=== PATIENT | male | born 1995 | race Caucasian/White ===

== ENCOUNTER 2018-09-01 22:09 | Emergency (ER) | payer MEDICAID ==
[2018-09-01 23:39] VITALS: BP 133/78
[2018-09-01] MEDS ORDERED: solu-MEDROL 125 MG IM ONE (23:46)
[2018-09-01] MEDS ORDERED: Rocephin 1000 MG INJ IM ONE (23:46)
--- NOTE | 2018-09-01 23:46 | ERPHSYRPT ---
- History of Present Illness Time Seen by Provider: 09/01/18 23:35 Source: patient Exam Limitations: no limitations Patient Subjective Stated Complaint: pt states over past 3 days has recieved bites on legs and scrotum. pt states he has been outside [employer]. pt states he did sit on the grass, but he had on bluejeans. Triage Nursing Assessment: bites noted on all extremeties, but concentrated on legs and perineal area. Physician History: 22 y/o white male presents with several insect bites generalized but most concentrated on pt scrotal, perineal and bilat lower ext. pt was out fishing for 3 days. pt is very itchy. never had this before. pt has been using topical hydrocortisone and topical benadryl. not improving. Timing/Duration: day(s) (3) Quality: itchy Severity: moderate Location: extremities (bilat lower ext), genitalia Possible Causes: insect bite Modifying Factors: Improves With: scratching Associated Symptoms: change in skin texture, rash Hx Tetanus, Diphtheria Vaccination/Date Given: No Hx Influenza Vaccination/Date Given: No Hx Pneumococcal Vaccination/Date Given: No Immunizations Up to Date: Yes - Review of Systems Constitutional: No Symptoms Eyes: No Symptoms Ears, Nose, & Throat: No Symptoms Respiratory: No Symptoms Cardiac: No Symptoms Abdominal/Gastrointestinal: No Symptoms Genitourinary Symptoms: No Symptoms Musculoskeletal: No Symptoms Skin: Other (several punctate insect bite sites with rash and mild localized infection around a few of these) Neurological: No Symptoms Psychological: No Symptoms Endocrine: No Symptoms Hematologic/Lymphatic: No Symptoms Immunological/Allergic: No Symptoms All Other Systems: Reviewed and Negative - Past Medical History Pertinent Past Medical History: No Neurological History: No Pertinent History ENT History: No Pertinent History Cardiac History: No Pertinent History Respiratory History: No Pertinent History Endocrine Medical History: No Pertinent History Musculoskeletal History: No Pertinent History GI Medical History: No Pertinent History History: No Pertinent History Psycho-Social History: No Pertinent History, Depression Male Reproductive Disorders: No Pertinent History - Past Surgical History Past Surgical History: No Neuro Surgical History: No Pertinent History Cardiac: No Pertinent History Respiratory: No Pertinent History Gastrointestinal: No Pertinent History Genitourinary: No Pertinent History Musculoskeletal: No Pertinent History Male Surgical History: No Pertinent History - Social History Smoking Status: Current every day smoker How long have you smoked: 1 yr Exposure to second hand smoke: No Drug Use: none Patient Lives Alone: No - Nursing Vital Signs Nursing Vital Signs: Initial Vital Signs Temperature 98.1 F 09/01/18 23:24 Pulse Rate 72 09/01/18 23:24 Respiratory Rate 18 09/01/18 23:24 Blood Pressure 133/78 09/01/18 23:24 O2 Sat by Pulse Oximetry 99 09/01/18 23:24 Pain Scale Pain Intensity 6 - Physical Exam General Appearance: no apparent distress, alert, anxiety Eye Exam: PERRL/EOMI, eyes nml inspection Ears, Nose, Throat Exam: normal ENT inspection, moist mucous membranes Neck Exam: normal inspection, non-tender, supple, full range of motion Respiratory Exam: normal breath sounds, lungs clear, airway intact, No chest tenderness, No respiratory distress Cardiovascular Exam: regular rate/rhythm, normal heart sounds, normal peripheral pulses Gastrointestinal/Abdomen Exam: soft, normal bowel sounds, No tenderness, No guarding Male Genitalia Exam: other (scrotal and perineal insect bite sites) Rectal Exam: not done Back Exam: normal inspection, normal range of motion, CVA tenderness Extremity Exam: normal range of motion, pelvis stable, other (multiple itchy, insect bite sites with peribite site redness and mild localized infection) Neurologic Exam: alert, oriented x 3, cooperative, 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, normal mood/affect, nml cerebellar function, nml station & gait Skin Exam: rash, other (insect bite sites as above) Lymphatic Exam: No adenopathy SpO2 Interpretation: normal SpO2: 99 O2 Delivery: Room Air - Course Nursing assessment & vital signs reviewed: Yes Ordered Tests: Medication Summary Discontinued Medications Generic Name Dose Route Start Last Admin Trade Name Yeyo PRN Reason Stop Dose Admin Ceftriaxone Sodium 1,000 mg 09/01/18 23:46 09/02/18 00:03 Rocephin 1000 Mg Inj IM 09/01/18 23:47 1,000 mg STAT ONE Administration Ceftriaxone Sodium Confirm 09/01/18 23:54 Rocephin 1000 Mg Inj Administered 09/01/18 23:55 Dose 1,000 mg .ROUTE .STK-MED ONE Diphenhydramine HCl 50 mg 09/01/18 23:47 09/02/18 00:03 Benadryl 25 Mg Capsule PO 09/01/18 23:48 50 mg STAT ONE Administration Diphenhydramine HCl Confirm 09/01/18 23:53 Benadryl 25 Mg Capsule Administered 09/01/18 23:54 Dose 50 mg .ROUTE .STK-MED ONE Famotidine 40 mg 09/01/18 23:47 09/02/18 00:02 Pepcid 20 Mg PO 09/01/18 23:48 40 mg STAT ONE Administration Famotidine Confirm 09/01/18 23:53 Pepcid 20 Mg Administered 09/01/18 23:54 Dose 40 mg .ROUTE .STK-MED ONE Methylprednisolone Sodium Succinate 125 mg 09/01/18 23:46 09/02/18 00:03 Solu-Medrol 125 Mg IM 09/01/18 23:47 125 mg STAT ONE Administration Methylprednisolone Sodium Succinate Confirm 09/01/18 23:54 Solu-Medrol 125 Mg Administered 09/01/18 23:55 Dose 125 mg .ROUTE .STK-MED ONE - Progress Counseled pt/family regarding: diagnosis, need for follow-up - Departure Departure Disposition: Home Clinical Impression: Insect bites of multiple sites, infected Condition: Stable Critical Care Time: No Referrals: DOCTOR,NO FAMILY [Primary Care Provider] - Additional Instructions: keep all sites clean with soap and water. use oral benadryl 25mg 3 times daily. take other medications as prescribed. follow up with primary doctor tomorrow for re evaluation. return to ED if symptoms worsen. Prescriptions: Doxycycline Hyclate 100 mg [Vibramycin 100 MG] 100 mg PO BID #14 tab Prednisone 5 mg [Deltasone 5 mg] 5 mg PO TID #12 tablet raNITIdine HCl [Zantac] 150 mg PO BID #10 tablet
[2018-09-01] MEDS ORDERED: BENADRYL 25 MG CAPSULE PO ONE (23:47)
[2018-09-01] MEDS ORDERED: Pepcid 20 MG PO ONE (23:47)
[2018-09-01] MEDS ORDERED: Pepcid 20 MG ONE (23:53)
[2018-09-01] MEDS ORDERED: BENADRYL 25 MG CAPSULE ONE (23:53)
[2018-09-01] MEDS ORDERED: solu-MEDROL 125 MG ONE (23:54)
[2018-09-01] MEDS ORDERED: Rocephin 1000 MG INJ ONE (23:54)
[2018-09-02 00:25] VITALS: PULSE 74; O2SAT 100
== END 2018-09-02 00:39 | disposition home or self-care (01) ==
LOC: ED 22:09
DX: S30.860A Insect bite (nonvenomous) of lower back and pelvis, initial encounter (principal); S30.863A Insect bite (nonvenomous) of scrotum and testes, initial encounter
CPT/HCPCS: 96372; 99284; J0696; J2930; A9270-GY

== ENCOUNTER 2019-04-02 10:05 | Emergency (ER) | payer BC, MEDICAID ==
[2019-04-02 10:22] VITALS: O2SAT 99
--- NOTE | 2019-04-02 10:24 | ERPHSYRPT ---
- History of Present Illness Time Seen by Provider: 04/02/19 10:14 Source: patient Exam Limitations: no limitations Physician History: the patient is a 23-year-old male with a past history significant for prior cigarette smoking he was transitioned to vaping presents with a chief complaint of left mid subscapular pain that started last night after vaping. The pain is described as a sharp pain that is non-radiating, constant and increases whenever he takes a deep breath. Endorse have an intermittent cough that is nonproductive. He denies chest pain, shortness of breath, fever, chills and symptoms consistent with a URI. He decided to come to the emergency department this morning when the pain was persistent and not going away. He has not taken anything for pain prior to arrival. He denies history of DVT, PE, malignancy, calf pain and asymmetric lower extremity swelling, recent surgery and recent immobilization. Allergies/Adverse Reactions: No Known Drug Allergies Allergy (Verified 04/02/19 10:23) Home Medications: Levothyroxine Sodium 25 Mcg [Synthroid 25 Mcg] 50 mcg PO DAILY 04/02/19 [ History] Hx Tetanus, Diphtheria Vaccination/Date Given: No Hx Influenza Vaccination/Date Given: No Hx Pneumococcal Vaccination/Date Given: No - Review of Systems Constitutional: No Fever, No Chills Eyes: No Symptoms Ears, Nose, & Throat: No Symptoms Respiratory: Cough, No Dyspnea, No Dyspnea on Exertion ([place]) Cardiac: No Chest Pain, No Edema, No Palpitations, No Syncope Abdominal/Gastrointestinal: No Symptoms, No Nausea, No Vomiting Musculoskeletal: Other (Left midscapular back pain) Skin: No Symptoms Neurological: No Symptoms Psychological: No Symptoms Immunological/Allergic: No Symptoms All Other Systems: Reviewed and Negative - Past Medical History Pertinent Past Medical History: Yes Neurological History: No Pertinent History ENT History: No Pertinent History Cardiac History: No Pertinent History Respiratory History: No Pertinent History Endocrine Medical History: No Pertinent History Musculoskeletal History: No Pertinent History GI Medical History: No Pertinent History History: No Pertinent History Psycho-Social History: No Pertinent History, Depression Male Reproductive Disorders: No Pertinent History - Past Surgical History Past Surgical History: No Neuro Surgical History: No Pertinent History Cardiac: No Pertinent History Respiratory: No Pertinent History Gastrointestinal: No Pertinent History Genitourinary: No Pertinent History Musculoskeletal: No Pertinent History Male Surgical History: No Pertinent History - Social History Smoking Status: Current every day smoker How long have you smoked: 1 yr Exposure to second hand smoke: No Drug Use: none Patient Lives Alone: No - Nursing Vital Signs Nursing Vital Signs: Initial Vital Signs Temperature 97.7 F 04/02/19 10:11 Pulse Rate 80 04/02/19 10:11 Respiratory Rate 18 04/02/19 10:11 Blood Pressure 154/79 04/02/19 10:11 O2 Sat by Pulse Oximetry 99 04/02/19 10:11 Pain Scale Pain Intensity [] 6 Pain Intensity 6 - Physical Exam General Appearance: no apparent distress, alert Eye Exam: PERRL/EOMI, eyes nml inspection Ears, Nose, Throat Exam: normal ENT inspection, moist mucous membranes, No pharyngeal erythema, No tonsillar exudate Neck Exam: normal inspection, supple Respiratory Exam: normal breath sounds, lungs clear, airway intact, No chest tenderness, No respiratory distress, No diminished breath sounds, No accessory muscle use, No prolonged expirations Cardiovascular Exam: regular rate/rhythm, normal heart sounds, normal peripheral pulses, capillary refill <2 sec Gastrointestinal/Abdomen Exam: soft, No tenderness Rectal Exam: deferred Back Exam: normal inspection, No CVA tenderness, No point tenderness Extremity Exam: normal inspection, other (No asymmetric swelling, calf tenderness or deformity to suggest DVT), No swelling, No tenderness Neurologic Exam: alert, oriented x 3, cooperative Skin Exam: normal color, warm, dry, No rash SpO2 Interpretation: normal O2 Delivery: Room Air - Course Nursing assessment & vital signs reviewed: Yes - Radiology Exams Chest X-ray Interpretation: Interpreted by me, Reviewed by me, Negative Ordered Tests: Medication Summary Discontinued Medications Generic Name Dose Route Start Last Admin Trade Name Yeyo PRN Reason Stop Dose Admin Ibuprofen 400 mg 04/02/19 10:26 04/02/19 10:28 Motrin 400 Mg PO 04/02/19 10:27 400 mg STAT ONE Administration Ibuprofen Confirm 04/02/19 10:27 Motrin 400 Mg Administered 04/02/19 10:28 Dose 400 mg .ROUTE .STK-MED ONE Lab/Rad Data: Laboratory Results 04/02/19 Range/Units 10:45 D-Dimer < 215 L (215-500) ng/mL - Progress Progress: improved Progress Note: 04/02/19 11:17 the patient's will score for PE is likely to be a 1.5 at most and with a d- dimer is within normal limits with his risk for PE is low at this time. Therefore, for further workup for PE, specifically CTA chest. Pain likely either subscapular muscle strain or pleurisy. The patient was instructed to stop smoking and vaping. He as instructed to take APAP and/or ibuprofen prn for his pain. 04/05/19 09:30 Counseled pt/family regarding: lab results, diagnosis, need for follow-up, rad results, smoking cessation - Departure Departure Disposition: Home Clinical Impression: Pleurisy Condition: Stable Critical Care Time: No Referrals: DOCTOR,NO FAMILY [Primary Care Provider] - Instructions: Pleuritic Chest Pain (DC) Additional Instructions: Please take Tylenol and/or ibuprofen as needed for pain. He can purchase these medications [id number] him please take his medications as instructed on the bottle. Please try to stop smoking and vaping. This can have serious long and short-term consequences to your lung health.
[2019-04-02] MEDS ORDERED: MOTRIN 400 MG PO ONE (10:26)
[2019-04-02] MEDS ORDERED: MOTRIN 400 MG ONE (10:27)
[2019-04-02 11:28] VITALS: BP 113/70; PULSE 84
--- NOTE | 2019-04-02 19:51 | XRAY ---
Indication: Back pain. Comparison: None PA/lateral chest demonstrates normal heart, lungs, and bony thorax.
== END 2019-04-02 11:30 | disposition home or self-care (01) ==
LOC: ED 10:05
DX: R09.1 Pleurisy (principal); F17.290 Nicotine dependence, other tobacco product, uncomplicated; R05 Cough
CPT/HCPCS: 36415; 71046; 85379; 99283; A9270-GY

== ENCOUNTER 2021-05-29 15:16 | Emergency (ER) | payer BC ==
[2021-05-29 15:56] LABS: Absolute Neutrophil Ct (ANC) 5.92 (1.4-6.9); Basophil (Absolute #) 0.02 (0-0.4); Eosinophil % 0.6 % (0.00-5.0); Eosinophil (Absolute #) 0.05 (0-0.5); Hematocrit 42.4 % (42-50); Hemoglobin 13.8 gm/dl (12.5-18.0); Mean Cell Volume 91.6 fl (78-100); Mean Corpuscular Hemoglobin 29.8 pg (26-32); Mean Corpuscular Hgb Concent. 32.5 g/dl (32-36); Mean Platelet Volume 10.3 fl (7.5-11.0); Monocytes % 6.8 % (0.0-12.0); Neutrophil % 67.4 % (36.0-66.0); Platelet Count 274 K/mm3 (150-450); Red Blood Count 4.63 M/mm3 (4.1-5.6); Red Cell Distribution Width 13.4 % (11.5-14.0); White Blood Count 8.8 K/mm3 (4.0-10.5)
--- NOTE | 2021-05-29 15:56 | ERPHSYRPT ---
- History of Present Illness Time Seen by Provider: 05/29/21 15:30 Historian: patient Exam Limitations: no limitations Patient Subjective Stated Complaint: Chest pain Triage Nursing Assessment: Patient ambulated back to ED and transferred self to bed. Patient A+O X3. Patient's skin pink, warm and dry. Patient complains of chest pain 2/10 that started 40 min ago while sitting at work. Patient denies N/V. Patient states when he stands up he feels lightheaded and feels like hes going to pass out. Physician History: Patient is a 25-year-old male presents to emergency department for evaluation of chest pain that started approximately 40 minutes prior to arrival. Chest pain described as an ache that is substernal. Patient had chest pain approximately 1 month ago. At that time he was told it was due to a meloxicam. Patient stopped the meloxicam and was pain-free. Patient's chest pain recurred today. No associated nausea vomiting or diaphoresis. No trauma. No fever. Patient states he feels somewhat lightheaded when he stands. Quit smoking 2 weeks ago. He otherwise feels well. Patient voices no other complaints or concerns at this time. Timing/Duration: today Activities at Onset: none Quality: aching Location: substernal Chest Pain Radiation: no radiation Severity of Pain-Max: moderate Severity of Pain-Current: mild Modifying Factors: Improves With: nothing Associated Symptoms: other (Lightheadedness when he stands.) Prior Chest Pain/Cardiac Workup: no prior cardiac workup Nitro Today/Relief: no nitro taken today Aspirin Treatment Today: no aspirin today Allergies/Adverse Reactions: No Known Drug Allergies Allergy (Verified 05/29/21 15:16) Home Medications: Levothyroxine Sodium 25 Mcg [Synthroid 25 Mcg] 150 mcg PO DAILY 04/02/19 [History] Hx Tetanus, Diphtheria Vaccination/Date Given: No Hx Influenza Vaccination/Date Given: No Hx Pneumococcal Vaccination/Date Given: No Immunizations Up to Date: Yes Travel Risk - International Travel Have you traveled outside of the country in past 3 weeks: No - Coronavirus Screening Are you exhibiting any of the following symptoms?: No - Vaccine Status Have you recieved a Covid-19 vaccination: Yes [employer]: [employer] - Vaccination Dates Date of 2cond Vaccination (if applicable): January 2021 - Review of Systems Constitutional: No Symptoms, No Fever, No Chills Eyes: No Symptoms Ears, Nose, & Throat: No Symptoms Respiratory: No Symptoms, No Cough, No Dyspnea Cardiac: No Symptoms, No Chest Pain, No Edema, No Syncope Abdominal/Gastrointestinal: No Symptoms, No Abdominal Pain, No Nausea, No Vomiting, No Diarrhea Genitourinary Symptoms: No Symptoms, No Dysuria Musculoskeletal: No Symptoms, No Back Pain, No Neck Pain Skin: No Symptoms, No Rash Neurological: No Symptoms, No Dizziness, No Focal Weakness, No Sensory Changes Psychological: No Symptoms Endocrine: No Symptoms Hematologic/Lymphatic: No Symptoms Immunological/Allergic: No Symptoms All Other Systems: Reviewed and Negative - Past Medical History Pertinent Past Medical History: Yes Neurological History: No Pertinent History ENT History: No Pertinent History Cardiac History: No Pertinent History Respiratory History: No Pertinent History Endocrine Medical History: No Pertinent History Musculoskeletal History: No Pertinent History GI Medical History: No Pertinent History History: No Pertinent History Psycho-Social History: No Pertinent History, Depression Male Reproductive Disorders: No Pertinent History - Past Surgical History Past Surgical History: No Neuro Surgical History: No Pertinent History Cardiac: No Pertinent History Respiratory: No Pertinent History Gastrointestinal: No Pertinent History Genitourinary: No Pertinent History Musculoskeletal: No Pertinent History Male Surgical History: No Pertinent History - Social History Smoking Status: Current every day smoker How long have you smoked: 1 yr Exposure to second hand smoke: No Drug Use: none Patient Lives Alone: No - Nursing Vital Signs Nursing Vital Signs: Initial Vital Signs Temperature 98.5 F 05/29/21 15:23 Pulse Rate 86 05/29/21 15:23 Respiratory Rate 18 05/29/21 15:23 Blood Pressure 134/90 05/29/21 15:23 O2 Sat by Pulse Oximetry 99 05/29/21 15:23 Pain Scale Pain Intensity 2 - Physical Exam General Appearance: no apparent distress, alert Eye Exam: PERRL/EOMI, eyes nml inspection Ears, Nose, Throat Exam: normal ENT inspection, TMs normal, pharynx normal, moist mucous membranes Neck Exam: normal inspection, non-tender, supple, full range of motion Respiratory Exam: normal breath sounds, lungs clear, airway intact, No respiratory distress Cardiovascular Exam: regular rate/rhythm, normal heart sounds, normal peripheral pulses Gastrointestinal/Abdomen Exam: soft, normal bowel sounds, No tenderness, No mass Back Exam: normal inspection, normal range of motion, No CVA tenderness, No vertebral tenderness Extremity Exam: normal inspection, normal range of motion Neurologic Exam: alert, oriented x 3, cooperative, tooth cutter contact wheel II-XII nml as tested, normal mood/affect, sensation nml, No motor deficits Skin Exam: normal color, warm, dry Lymphatic Exam: No adenopathy SpO2 Interpretation: normal SpO2: 99 O2 Delivery: Room Air - Course Nursing assessment & vital signs reviewed: Yes EKG Interpreted by Me: RATE (91), Sinus Rhythm, NORMAL AXIS, NORMAL INTERVALS - Radiology Exams Chest X-ray Interpretation: Reviewed by me (Normal heart lungs and bony thorax.) Ordered Tests: Active Orders 24 hr Category Date Time Status [employer] STAT Care 05/29/21 15:40 Active EKG-ER Only STAT Care 05/29/21 15:39 Active IV Insertion STAT Care 05/29/21 15:39 Active Pulse Oximetry (ED) STAT Care 05/29/21 15:39 Active CHEST 1 VIEW (PORTABLE) Stat Exams 05/29/21 16:02 Completed CBC W DIFF Stat Lab 05/29/21 15:27 Completed CMP Stat Lab 05/29/21 15:27 Completed D-DIMER QUANTITATIVE Stat Lab 05/29/21 15:27 Completed TROPONIN Q3H Lab 05/29/21 15:27 Completed TROPONIN Q3H Lab 05/29/21 16:40 Completed TROPONIN Q3H Lab 05/29/21 21:45 Ordered TROPONIN Q3H Lab 05/30/21 00:45 Ordered TROPONIN Q3H Lab 05/30/21 03:45 Ordered UA W/RFX UR CULTURE Stat Lab 05/29/21 16:26 Completed Lab/Rad Data: Laboratory Result Diagrams 05/29/21 15:27 05/29/21 15:27 Laboratory Results 05/29/21 05/29/21 05/29/21 Range/Units 16:40 16:26 15:27 WBC (4.0-10.5) K/mm3 RBC (4.1-5.6) M/mm3 Hgb (12.5-18.0) gm/dl Hct (42-50) % MCV (78-100) fl MCH (26-32) pg MCHC (32-36) g/dl RDW (11.5-14.0) % Plt Count (150-450) K/mm3 MPV (7.5-11.0) fl Gran % (36.0-66.0) % Eos # (Auto) (0-0.5) Absolute Lymphs (auto) (1.0-4.6) Absolute Monos (auto) (0.0-1.3) Lymphocytes % (24.0-44.0) % Monocytes % (0.0-12.0) % Eosinophils % (0.00-5.0) % Basophils % (0.0-0.4) % Absolute Granulocytes (1.4-6.9) Basophils # (0-0.4) D-Dimer (215-500) ng/mL Sodium (137-145) mmol/L Potassium (3.5-5.1) mmol/L Chloride (98-107) mmol/L Carbon Dioxide (22-30) mmol/L Anion Gap (5-15) MEQ/L BUN (9-20) mg/dL Creatinine (0.66-1.25) mg/dL Estimated GFR ML/MIN Glucose (74-106) mg/dL Calcium (8.4-10.2) mg/dL Total Bilirubin (0.2-1.3) mg/dL AST (17-59) U/L ALT (0-50) U/L Alkaline Phosphatase (38-126) U/L Troponin I < 0.012 < 0.012 (0.000-0.034) ng/mL Serum Total Protein (6.3-8.2) g/dL Albumin (3.5-5.0) g/dL Urine Color YELLOW (YELLOW) Urine Appearance SLIGHTLY CLOUDY (CLEAR) Urine pH 5.0 (5-6) Ur Specific [place] 1.032 (1.005-1.025) Urine Protein 100 (Negative) Urine Ketones SMALL (NEGATIVE) Urine Blood NEGATIVE (0-5) Jayce/ul Urine Nitrite NEGATIVE (NEGATIVE) Urine Bilirubin NEGATIVE (NEGATIVE) Urine Urobilinogen 2 (0-1) mg/dL Ur Leukocyte Esterase NEGATIVE (NEGATIVE) Urine WBC (Auto) NONE (0-5) /HPF Urine RBC (Auto) 0-2 (0-2) /HPF U Epithel Cells (Auto) NONE (FEW) /HPF Urine Mucus (Auto) SLIGHT (NEGATIVE) /HPF Urine Culture Reflexed NO (NO) Urine Glucose NEGATIVE (NEGATIVE) mg/dL 0305/29/21 05/29/21 Range/Units 15:27 15:27 15:27 WBC 8.8 (4.0-10.5) K/mm3 RBC 4.63 (4.1-5.6) M/mm3 Hgb 13.8 (12.5-18.0) gm/dl Hct 42.4 (42-50) % MCV 91.6 (78-100) fl MCH 29.8 (26-32) pg MCHC 32.5 (32-36) g/dl RDW 13.4 (11.5-14.0) % Plt Count 274 (150-450) K/mm3 MPV 10.3 (7.5-11.0) fl Gran % 67.4 H (36.0-66.0) % Eos # (Auto) 0.05 (0-0.5) Absolute Lymphs (auto) 2.20 (1.0-4.6) Absolute Monos (auto) 0.60 (0.0-1.3) Lymphocytes % 25.0 (24.0-44.0) % Monocytes % 6.8 (0.0-12.0) % Eosinophils % 0.6 (0.00-5.0) % Basophils % 0.2 (0.0-0.4) % Absolute Granulocytes 5.92 (1.4-6.9) Basophils # 0.02 (0-0.4) D-Dimer 226 (215-500) ng/mL Sodium 141 (137-145) mmol/L Potassium 3.6 (3.5-5.1) mmol/L Chloride 103 (98-107) mmol/L Carbon Dioxide 28 (22-30) mmol/L Anion Gap 13.6 (5-15) MEQ/L BUN 15 (9-20) mg/dL Creatinine 0.97 (0.66-1.25) mg/dL Estimated GFR > 60.0 ML/MIN Glucose 87 (74-106) mg/dL Calcium 9.8 (8.4-10.2) mg/dL Total Bilirubin 1.00 (0.2-1.3) mg/dL AST 31 (17-59) U/L ALT 30 (0-50) U/L Alkaline Phosphatase 73 (38-126) U/L Troponin I (0.000-0.034) ng/mL Serum Total Protein 7.6 (6.3-8.2) g/dL Albumin 4.8 (3.5-5.0) g/dL Urine Color (YELLOW) Urine Appearance (CLEAR) Urine pH (5-6) Ur Specific [place] (1.005-1.025) Urine Protein (Negative) Urine Ketones (NEGATIVE) Urine Blood (0-5) Jayce/ul Urine Nitrite (NEGATIVE) Urine Bilirubin (NEGATIVE) Urine Urobilinogen (0-1) mg/dL Ur Leukocyte Esterase (NEGATIVE) Urine WBC (Auto) (0-5) /HPF Urine RBC (Auto) (0-2) /HPF U Epithel Cells (Auto) (FEW) /HPF Urine Mucus (Auto) (NEGATIVE) /HPF Urine Culture Reflexed (NO) Urine Glucose (NEGATIVE) mg/dL - Progress Progress: improved Air Movement: good Progress Note: Patient reassessed. He remains asymptomatic. D-dimer negative. Troponin negative x2 -. EKG normal sinus rhythm. No ischemic changes. Chest x-ray normal. Laboratory work-up essentially nonremarkable. No indication for further work-up at this time. Heart score is 0. Will discharge home. Patient may benefit from an outpatient echocardiogram. Patient's pain may also be acid reflux. Patient is going to start [id number] antacid to see if this helps. However patient agrees to follow-up with his primary care doctor within 48 hours for evaluation. Patient states is ready for discharge. He voices no other complaints or concerns at this time. Portions of this note were created with voice recognition technology. There may be grammatical, spelling, punctuation or sound alike errors 05/29/21 17:50 We held off on aspirin and nitroglycerin. I have very low suspicion that this is acute coronary syndrome. Vitals within normal limits. 05/29/21 17:52 Blood Culture(s) Obtained: No Antibiotics given: No Counseled pt/family regarding: lab results, diagnosis, need for follow-up, rad results - Departure Departure Disposition: Home Clinical Impression: Chest pain, Nonspecific chest pain Condition: Stable Critical Care Time: No Referrals: DOCTOR,NO FAMILY [Primary Care Provider] - Follow up/PCP as directed SHELLIE CORONA [ACTIVE STAFF] - Follow up/PCP as directed Additional Instructions: Discharge/Care Plan RHINA PICKENS was seen on 05/29/21 in the Emergency Room. The patient was counseled regarding Diagnosis,Lab results, Imaging studies, need for follow up and when to return to the Emergency Room. Prescriptions given: Discharge Note I have spoken with the patient and/or caregivers. I have explained the patient's condition, diagnosis and treatment plan based on the information available to me at this time. I have answered the patient's and/or caregiver's questions and addressed any concerns. The patient and/or caregivers have as good understanding of the patient's diagnosis, condition and treatment plan as can be expected at this point. The vital signs have been stable. The patient's condition is stable and appropriate for discharge from the emergency department. The patient will pursue further outpatient evaluation with the primary care physician or other designated or consulting physician as outlined in the discharge instructions. The patient and/or caregivers are agreeable to this plan of care and follow-up instructions have been explained in detail. The patient and/or caregivers have received these instruction. The patient/and or caregivers are aware that any significant change in condition or worsening of symptoms should prompt an immediate return to this or the closest emergency department or call 911.
[2021-05-29 16:06] LABS: ALBUMIN 4.8 g/dL (3.5-5.0); ALKALINE PHOSPHATASE 73 U/L (38-126); ANION GAP 13.6 MEQ/L (5-15); BLOOD UREA NITROGEN 15 mg/dL (9-20); CHLORIDE 103 mmol/L (98-107); Calcium 9.8 mg/dL (8.4-10.2); Carbon Dioxide 28 mmol/L (22-30); Creatinine 1 0.97 mg/dL (0.66-1.25); EST GLOMERULAR FILTRATION RATE > 60.0 ML/MIN; Glucose 87 mg/dL (74-106); Potassium 3.6 mmol/L (3.5-5.1); SGOT/AST 31 U/L (17-59); SGPT/ALT 30 U/L (0-50); SODIUM 141 mmol/L (137-145); Total Protein 7.6 g/dL (6.3-8.2)
--- NOTE | 2021-05-29 16:19 | XRAY ---
Indication: Chest pain. Comparison: April 02, 2019. Portable chest again demonstrates normal heart, lungs, and bony thorax.
[2021-05-29 16:52] LABS: Appearance SLIGHTLY CLOUDY (CLEAR); Bilirubin NEGATIVE (NEGATIVE); Blood NEGATIVE Ery/ul (0-5); Glucose NEGATIVE (NEGATIVE); Ketones SMALL (NEGATIVE); Leukocyte Esterase NEGATIVE (NEGATIVE); Mucus SLIGHT /HPF (NEGATIVE); Nitrite NEGATIVE (NEGATIVE); Protein,Urine Dip 100 (Negative); RBC 0-2 /HPF (0-2); Specific Gravity 1.032 (1.005-1.025); Urobilinogen 2 mg/dL (0-1)
[2021-05-29 17:55] VITALS: O2SAT 99
[2021-05-29 18:06] VITALS: BP 138/81; PULSE 77
== END 2021-05-29 18:11 | disposition home or self-care (01) ==
LOC: ED 15:16
DX: R07.9 Chest pain, unspecified (principal); R42 Dizziness and giddiness; Z72.0 Tobacco use
CPT/HCPCS: 36000; 36415; 71045; 80053; 81001; 84484; 85025; 85379; 93005; 93041; 94760; 99284